=== PATIENT | male | born 1985 | race American Indian/Alaskan Native ===

== ENCOUNTER 2020-07-18 04:02 | Emergency (ER) | payer SELFPAY ==
--- NOTE | 2020-07-18 06:53 | XRay Report ---
EXAMINATION: Left foot radiograph, 3 views, 07/18/2020 CLINICAL INFORMATION: Left foot pain COMPARISON: None. FINDINGS: There is no evidence of acute fracture or focal soft tissue swelling of the left foot. No s ignificant bony degenerative changes are noted. Signer Name: Trista Bernabe MD Signed: 07/18/2020 6:48 AM Workstation Name: [id number]
[2020-07-18] MEDS ORDERED: IBUPROFEN 800 MG TAB PO ONE (09:01)
[2020-07-18 09:17] VITALS: BP 138/96
--- NOTE | 2020-07-18 09:31 | Emergency Department Report ---
ED Lower Extremity HPI - General Chief Complaint: Extremity Injury, Lower Stated Complaint: LEFT FOOT PAIN Time Seen by Provider: 07/18/20 08:49 Source: patient Mode of arrival: Ambulatory Limitations: No Limitations - History of Present Illness Initial Comments: This is a 35-year-old -[place] male presents to the emergency room with complaints of left foot pain x2 weeks. He denies any known falls or injuries. He currently works as a demi chef. He states the pain worsens when he bears weight. States he has tried soaking his foot with Epson salt with no relief. Patient denies any past medical history. He is currently in no acute distress -: week(s) (2) Injury: Foot: Left Type of Injury: unknown (No known injury) Severity scale (0 -10): 8 Improves With: nothing Worsens With: weight bearing Associated Symptoms: ambulatory Treatments Prior to Arrival: other (Epson salt soak no relief) - Related Data Previous Rx's Medication Instructions Recorded Last Taken Type Ibuprofen [Motrin] 800 mg PO Q8HR PRN #21 tablet 07/18/20 Unknown Rx Allergies Allergy/AdvReac Type Severity Reaction Status Date / Time No Known Allergies Allergy Unverified 07/18/20 05:57 ED Review of Systems ROS: Stated complaint: LEFT FOOT PAIN Other details as noted in HPI Comment: All other systems reviewed and negative Constitutional: no symptoms reported ENT: denies: ear pain, throat pain Respiratory: denies: cough, shortness of breath Cardiovascular: denies: chest pain, palpitations Endocrine: denies: excessive sweating, intolerance to cold Gastrointestinal: denies: abdominal pain, nausea, vomiting, constipation Genitourinary: denies: dysuria Musculoskeletal: other (Left lateral foot pain) Neurological: denies: headache ED Past Medical Hx - Past Medical History Previous Medical History?: No - Surgical History Past Surgical History?: No - Social History Smoking Status: Current Every Day Smoker Substance Use Type: Alcohol - Medications Home Medications: Home Medications Medication Instructions Recorded Confirmed Last Taken Type Ibuprofen [Motrin] 800 mg PO Q8HR PRN #21 tablet 07/18/20 Unknown Rx ED Physical Exam - General Limitations: No Limitations General appearance: alert, in no apparent distress - Head Head exam: Present: atraumatic - Eye Eye exam: Present: normal appearance - ENT ENT exam: Present: normal exam, mucous membranes moist - Neck Neck exam: Present: normal inspection - Respiratory Respiratory exam: Present: normal lung sounds bilaterally - Cardiovascular Cardiovascular Exam: Present: regular rate, normal heart sounds - Extremities Exam Extremities exam: Present: normal inspection, full ROM, normal capillary refill, other (Left foot there is no swelling no deformity skins intact sensations intact 2+ pedal edema capillary refill good 1 to 2 seconds he is able to flex and extend at the ankle). Absent: pedal edema, joint swelling, calf tenderness - Back Exam Back exam: Present: normal inspection - Neurological Exam Neurological exam: Present: alert, oriented X3 - Psychiatric Psychiatric exam: Present: normal affect - Skin Skin exam: Present: warm, dry, intact ED Course Vital Signs 07/18/20 07/18/20 05:53 09:16 Temperature 98.3 F Pulse Rate 90 85 Respiratory 20 18 Rate Blood Pressure 134/87 Blood Pressure 138/96 [Left] O2 Sat by Pulse 98 99 Oximetry ED Lower Extremity MDM - Radiology Data Radiology results: report reviewed Left foot x-ray no acute findings no fractures or dislocation - Medical Decision Making 35-year-old male with no known injuries complaining of left foot pain. On examination there were no abnormalities no swelling no deformity skin was intact no sign of infection. Left foot x-ray negative for any fracture or dislocation. 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 ED Disposition Clinical Impression: Strain of left foot Qualifiers: Encounter type: initial encounter Qualified Code(s): S96.912A - Strain of unspecified muscle and tendon at ankle and foot level, left foot, initial encounter Disposition: -01 TO HOME OR SELFCARE Is pt being admited?: No Does the pt Need Aspirin: No Condition: Stable Instructions: Muscle Strain, [id number], Elastic Bandage and RICE Therapy Additional Instructions: Do warm foot soaks with Epson salt for the next week nightly. Take anti- inflammatory as prescribed. Follow-up with your primary care doctor in 3 to 5 days if no improvement. Wear comfortable shoes it is okay to apply a foot brace for comfort. The x-ray that was done of your left foot showed no fracture or dislocations Prescriptions: Ibuprofen [Motrin] 800 mg PO Q8HR PRN #21 tablet PRN Reason: Pain , Severe (7-10) Referrals: PRIMARY CAREMD [Primary Care Provider] - 3-5 Days MAGALIE KNOX MD [Staff Physician] - 3-5 Days Forms: Work/School Release Form Time of Disposition: 09:39
== END 2020-07-18 09:48 | disposition home or self-care (01) ==
LOC: ED 04:02
DX: S96.912A Strain of unspecified muscle and tendon at ankle and foot level, left foot, initial encounter (principal); F17.200 Nicotine dependence, unspecified, uncomplicated; Z79.899 Other long term (current) drug therapy; X58.XXXA Exposure to other specified factors, initial encounter; Y93.89 Activity, other specified; Y92.89 Other specified places as the place of occurrence of the external cause; Y99.8 Other external cause status